=== PATIENT | male | born 1985 | race Caucasian/White ===

== ENCOUNTER 2018-02-24 18:33 | Emergency (ER) | payer SELFPAY ==
--- NOTE | 2018-02-24 19:25 | EDPHY ---
H & P Time Seen by Provider: 02/24/18 19:24 HPI/ROS: CHIEF COMPLAINT: Nausea vomiting and diarrhea HISTORY OF PRESENT ILLNESS: Patient 1st got symptoms when he had right-sided severe flank pain in the evening followed by an episode of nausea and vomiting later that night. He then got better for about 12 hr but since 3: 00 a.m. Today has had multiple episodes of nausea vomiting and diarrhea. No hematemesis or coffee-ground emesis, no melena or red blood per rectum. His right-sided abdominal and flank pain is completely gone away and he does not have any urinary symptoms. Presents today with continued nausea and diarrhea. REVIEW OF SYSTEMS: Eye: no change in vision ENT: no sore throat Cardiac: no chest pain or syncope Pulmonary: no cough or SOB Abdomen: HPI Musculoskeletal: HPI Skin: no rash Neuro: no headache Constitutional: no fever : no urinary symptoms A comprehensive 10 point review of systems is otherwise negative aside from elements mentioned in the history of present illness. PAST MEDICAL HISTORY: Previous kidney stones and left leg fracture Social history: No alcohol, no recent travel General Appearance: Alert and conversant, cooperative. Eyes: No scleral icterus. ENT, Mouth: Dry mucous membranes. Respiratory: Normal respiratory effort, breath sounds equal, lungs are clear to auscultation. Cardiovascular: Regular rate and rhythm. Gastrointestinal: Abdomen is soft and non tender. No rebound or guarding. Neurological: Alert, face symmetric, normal motor and sensory in extremities. Skin: Warm and dry, no rashes. Musculoskeletal: No peripheral edema. Psychiatric: Not agitated. Emergency Department course/MDM: Flank pain is completely gone away, the fact that he has both vomiting and diarrhea would make renal colic less likely. More likely to be gastroenteritis type of illness. Plan for Zofran, IV fluid hydration, if urinalysis shows no microscopic hematuria would not pursue renal colic further. 2010: Results discussed, consistent with dehydration, additional IV fluids. Urinalysis reviewed, stable for discharge. Smoking Status: Never smoked Constitutional: Initial Vital Signs Temperature (C) 36.7 C 02/24/18 18:40 Heart Rate 118 H 02/24/18 18:40 Respiratory Rate 16 02/24/18 18:40 Blood Pressure 144/112 H 02/24/18 18:40 O2 Sat (%) 95 02/24/18 18:40 O2 Delivery Mode Room Air Allergies/Adverse Reactions: Penicillins Allergy (Verified 02/24/18 18:39) Home Medications: Medication Instructions Recorded [facility] 02/24/18 Medical Decision Making - Data Points Laboratory Results: Laboratory Results 02/24/18 19:26 02/24/18 19:26 02/24/18 02/24/18 02/24/18 21:20 19:26 19:26 WBC 10.77 10^3/uL H 10^3/uL (3.80-9.50) RBC 6.67 10^6/uL H 10^6/uL (4.40-6.38) Hgb 19.9 g/dL H g/dL (13.7-17.5) Hct 57.6 % H % (40.0-51.0) MCV 86.4 fL fL (81.5-99.8) MCH 29.8 pg pg (27.9-34.1) MCHC 34.5 g/dL g/dL (32.4-36.7) RDW 12.7 % % (11.5-15.2) Plt Count 358 10^3/uL 10^3/uL (150-400) MPV 8.7 fL fL (8.7-11.7) Neut % (Auto) 60.6 % % (39.3-74.2) Lymph % (Auto) 27.9 % % (15.0-45.0) [place] % (Auto) 9.9 % % (4.5-13.0) Eos % (Auto) 0.8 % % (0.6-7.6) Baso % (Auto) 0.5 % % (0.3-1.7) Nucleat RBC Rel Count 0.2 % % (0.0-0.2) Absolute Neuts (auto) 6.53 10^3/uL H 10^3/uL (1.70-6.50) Absolute Lymphs (auto) 3.00 10^3/uL 10^3/uL (1.00-3.00) Absolute Monos (auto) 1.07 10^3/uL H 10^3/uL (0.30-0.80) Absolute Eos (auto) 0.09 10^3/uL 10^3/uL (0.03-0.40) Absolute Basos (auto) 0.05 10^3/uL 10^3/uL (0.02-0.10) Absolute Nucleated RBC 0.02 10^3/uL H 10^3/uL (0-0.01) Immature Gran % 0.3 % % (0.0-1.1) Immature Gran # 0.03 10^3/uL 10^3/uL (0.00-0.10) Sodium 135 mEq/L mEq/L (135-145) Potassium 3.6 mEq/L mEq/L (3.5-5.2) Chloride 102 mEq/L mEq/L (97-110) Carbon Dioxide 19 mEq/l L mEq/l (22-31) Anion Gap 14 mEq/L mEq/L (6-14) BUN 14 mg/dL mg/dL (7-23) Creatinine 1.0 mg/dL mg/dL (0.7-1.3) Estimated GFR > 60 Glucose 130 mg/dL H mg/dL (70-100) Calcium 9.4 mg/dL mg/dL (8.5-10.4) Urine Color YELLOW Urine Appearance HAZY Urine pH 5.0 (5.0-7.5) Ur Specific [place] 1.017 (1.002-1.030) Urine Protein 1+ H (NEGATIVE) Urine Ketones 1+ H (NEGATIVE) Urine Blood NEGATIVE (NEGATIVE) Urine Nitrate NEGATIVE (NEGATIVE) Urine Bilirubin NEGATIVE (NEGATIVE) Urine Urobilinogen NEGATIVE EU EU (0.2-1.0) Ur Leukocyte Esterase NEGATIVE (NEGATIVE) Urine RBC 1-3 /hpf /hpf (0-3) Urine WBC 1-3 /hpf /hpf (0-3) Ur Epithelial Cells TRACE /lpf /lpf (NONE-1+) Hyaline Casts 25-50 /lpf H /lpf (0-1) Granular Casts 5-15 /lpf /lpf (0-1) Urine Mucus 2+ /lpf H /lpf (NONE-1+) Urine Glucose NEGATIVE (NEGATIVE) Medications Given: Discontinued Medications Sodium Chloride (Ns) 1,000 mls @ 0 mls/hr IV EDNOW ONE; Wide Open PRN Reason: Protocol Stop: 02/24/18 19:41 Last Admin: 02/24/18 19:58 Dose: 1,000 mls Sodium Chloride (Ns) 1,000 mls @ 0 mls/hr IV EDNOW ONE; Wide Open PRN Reason: Protocol Stop: 02/24/18 19:41 Last Admin: 02/24/18 19:58 Dose: 1,000 mls Sodium Chloride (Ns) 1,000 mls @ 0 mls/hr IV EDNOW ONE; Wide Open PRN Reason: Protocol Stop: 02/24/18 20:16 Last Admin: 02/24/18 20:23 Dose: 1,000 mls Ondansetron HCl (Zofran) 4 mg IVP EDNOW ONE Stop: 02/24/18 19:41 Last Admin: 02/24/18 19:58 Dose: 4 mg Ondansetron HCl (Zofran Odt 4 Mg Prepack#2) 1 btl TAKEHOME EDNOW ONE Stop: 02/24/18 20:10 Last Admin: 02/24/18 22:04 Dose: 1 btl Departure - Departure Disposition: Home, Routine, Self-Care Clinical Impression: Vomiting and diarrhea Condition: Good Instructions: Dehydration (ED) Referrals: Alia Yusuf MD [Medical Doctor] - As per Instructions Stand Alone Forms: Work Excuse
[2018-02-24] MEDS ORDERED: NS 1,000 ML IV ONE ×3 (19:40→20:15)
[2018-02-24] MEDS ORDERED: ONDANSETRON 4 MG/2 ML VIAL IVP ONE (19:40)
[2018-02-24 19:46] LABS: PLATELET COUNT 358 10^3/uL (150-400)
[2018-02-24] MEDS ORDERED: ONDANSETRON 4MG PREPACK#2 BTL TAKEHOME ONE (20:09)
[2018-02-24 22:10] VITALS: BP 124/83
== END 2018-02-24 22:09 | disposition home or self-care (01) ==
DX: R11.2 Nausea with vomiting, unspecified (principal); R19.7 Diarrhea, unspecified; E86.9 Volume depletion, unspecified; Z87.442 Personal history of urinary calculi; Z87.81 Personal history of (healed) traumatic fracture; Z88.0 Allergy status to penicillin
CPT/HCPCS: 96374; J2405